=== PATIENT | male | born 1950 | race Caucasian/White ===

== ENCOUNTER 2024-03-08 14:42 | Outpatient (CLI) | payer OTHER ==
[~2024-03-08] VITALS: Ht 160 cm; Wt 87.1 kg
[2024-03-08] MEDS: albuterol 2.5 MG/3 ML nebule NEB PRN (15:16)
[2024-03-08 15:17] VITALS: PULSE 70; RESP 15; O2SAT 93
== END 2024-03-08 23:59 | disposition home or self-care (01) ==
LOC: RT 14:42
PROVIDERS: ATTEND Chiropractor
DX: J45.909 Unspecified asthma, uncomplicated (principal)
CPT/HCPCS: 94060; 94760